=== PATIENT | male | born 1985 | race Hispanic/Latino ===

== ENCOUNTER → 2019-08-12 | Outpatient (CLI) | payer OTHER ==
--- NOTE | 2019-08-12 15:57 | REP ---
Digital diagnostic bilateral mammography with CAD, 3-D tomography, and focused left breast sonography: History: Hypertrophy of the left breast. Left greater than right. No comparison breast imaging. Findings: A skin marker is affixed to the site of the palpable lump which projects in the left breast laterally and superiorly. There is a gynecomastia pattern bilaterally, more prominent on the left than the right. No mass-like features are seen. No spiculation, architectural distortion or microcalcification is seen. No worrisome skin changes noted. Normal appearing lymph nodes are visible in the right axilla. Tomographic images show no additional finding. Magnified focal spot compression views in the area of the palpable lump are unremarkable. Sonographic findings: Focused left breast sonography in the retroareolar region in the area of the palpable lump shows heterogeneous fibroglandular tissue consistent with gynecomastia. There is no evidence of mass or cyst. Impression: BIRADS 2: BI-RADS/ACR category 2 mammogram. Benign Findings. BIRADS category 2 findings. Bilateral gynecomastia, left more prominent than right. Clinical followup is advised. This mammogram was interpreted with the aid of an FDA-approved computer-aided detection system. The patient letter being requested is male patient m2.
== END ==
LOC: M WHC 13:03
PROVIDERS: ATTEND Physician Assistant Medical
DX: N62 Hypertrophy of breast (principal)
CPT/HCPCS: 76642; 77066; G0279